=== PATIENT | female | born 1985 | race Two or more races ===

== ENCOUNTER 2021-06-09 19:53 | Emergency (ER) | payer MEDICAID ==
[~2021-06-09] VITALS: Ht 170.2 cm; Wt 65.8 kg
[2021-06-09 19:55] VITALS: BP 128/76
== END 2021-06-10 06:46 | disposition left against medical advice (07) ==
LOC: ER 19:54
DX: M54.5 Low back pain (principal); R50.9 Fever, unspecified; R30.9 Painful micturition, unspecified; Z53.21 Procedure and treatment not carried out due to patient leaving prior to being seen by health care provider

== ENCOUNTER 2021-07-30 21:11 | Emergency (ER) | payer SELFPAY ==
[~2021-07-30] VITALS: Ht 170.2 cm; Wt 68.0 kg
[2021-07-31] MEDS ORDERED: TETANUS-DIPTH-ACEL PERTUSSIS 0.5ML SYR Tdap IM ONE (00:15)
[2021-07-31] MEDS ORDERED: BACITRACIN TOP OINT 1 UD PKG TOP ONE (00:15)
[2021-07-31] MEDS ORDERED: LIDOCAINE 1% HCL (LOCAL ANESTH.) INJ 20ML MDV IJ ONE (00:15)
[2021-07-31 00:33] VITALS: BP 139/101
== END 2021-07-31 00:40 | disposition home or self-care (01) ==
LOC: ER 21:12
DX: S61.412A Laceration without foreign body of left hand, initial encounter (principal); W26.0XXA Contact with knife, initial encounter; Y93.89 Activity, other specified; Y92.89 Other specified places as the place of occurrence of the external cause; Y99.8 Other external cause status
CPT/HCPCS: 12001; 90471; 90715; 99283; J2001

== ENCOUNTER 2022-05-11 12:52 | Emergency (ER) | payer MEDICAID ==
[~2022-05-11] VITALS: Ht 180.3 cm; Wt 80.4 kg
[2022-05-11 14:55] VITALS: BP 145/99
== END 2022-05-11 15:39 | disposition home or self-care (01) ==
LOC: ER 12:52
DX: S80.02XA Contusion of left knee, initial encounter (principal); M62.831 Muscle spasm of calf; X58.XXXA Exposure to other specified factors, initial encounter; Y93.89 Activity, other specified; Y92.89 Other specified places as the place of occurrence of the external cause; Y99.8 Other external cause status
CPT/HCPCS: 93971

== ENCOUNTER 2022-12-05 12:38 | Emergency (ER) | payer MEDICAID ==
[~2022-12-05] VITALS: Ht 170.2 cm; Wt 73.0 kg
[2022-12-05] MEDS ORDERED: ASPirin 81 mg TAB PO ONE (12:45)
[2022-12-05] MEDS ORDERED: SODIUM CHLORIDE 0.9% 1,000 ML IV ONE (13:00)
[2022-12-05 13:01] LABS: Basophils # (auto) 0 10 ^3/uL (0-0.2); Eosinophils # (auto) 0.1 10 ^3/uL (0-0.8); Lymphocytes # (auto) 1.1 10 ^3/uL (0.4-5.4); Mean Corpuscular Hemoglobin 29.3 pg (28.0-32.0); Monocytes # (auto) 0.4 10 ^3/uL (0-1.3); Nucleated Red Blood Cells % 0.1 %; Red Cell Distribution Width 14.1 % (11.8-14.3); White Blood Cell 6.2 10^3/uL (4.4-10.8)
[2022-12-05 13:02] LABS: Basophils % (auto) 0.6 % (0.0-2.0); Eosinophils % (auto) 1.3 % (0.0-7.0); Hematocrit 39.9 % (36.0-46.0); Hemoglobin 13.7 g/dL (12.2-16.2); Lymphocytes % (auto) 18.4 % (10.0-50.0); Mean Corpuscular Hgb Conc. 34.3 g/dL (32.0-36.0); Mean Corpuscular Volume 85.3 fL (80.0-100.0); Neutrophils # (auto) 4.5 10 ^3/uL (1.6-8.6); Neutrophils % (auto) 72.7 % (37.0-80.0); Red Blood Cells 4.68 10^6/uL (4.0-5.20)
[2022-12-05 13:21] LABS: Albumin 2.2 g/dL (3.4-5.0); BUN/Creatinine Ratio 19.4; Potassium 3.7 mmol/L (3.5-5.1)
[2022-12-05 13:23] LABS: Bilirubin, Total 0.4 mg/dL (0.2-1.0); Total Protein 6.6 g/dL (6.4-8.2)
[2022-12-05] MEDS ORDERED: AZIT1POW PO (14:31)
[2022-12-05 15:16] VITALS: BP 109/68
== END 2022-12-05 15:18 | disposition home or self-care (01) ==
LOC: ER 12:38
DX: R07.89 Other chest pain (principal); J20.9 Acute bronchitis, unspecified; Z90.89 Acquired absence of other organs; Z79.2 Long term (current) use of antibiotics
CPT/HCPCS: 36415; 71045; 80053; 84484; 85025; 93005; 96360; 99285; J7030

== ENCOUNTER 2024-02-19 02:56 | Emergency (ER) | payer MEDICAID ==
[~2024-02-19] VITALS: Ht 170.2 cm; Wt 76.9 kg
[~2024-02-19 02:56] MED LIST: AZIT1POW PO
[2024-02-19 03:31] VITALS: BP 168/108; PULSE 106; RESP 16; O2SAT 99
== END 2024-02-19 04:35 | disposition left against medical advice (07) ==
LOC: ER 02:56
DX: H57.11 Ocular pain, right eye (principal); Z53.21 Procedure and treatment not carried out due to patient leaving prior to being seen by health care provider

== ENCOUNTER 2024-09-28 09:51 | Emergency (ER) | payer MEDICAID ==
[~2024-09-28] VITALS: Ht 170.2 cm; Wt 73.1 kg
[2024-09-28 10:18] VITALS: BP 138/99; PULSE 107; RESP 18; O2SAT 100
[2024-09-28] MEDS: KETOROLAC TROMETH 30 MG/ML 1ML VIAL IM ONE (10:35)
[2024-09-28] MEDS: HYDROcodone-ACET 5/325MG TAB PO ONE (10:35)
[2024-09-28] MEDS ORDERED: IBUP1TAB5 PO (10:59)
[2024-09-28] MEDS ORDERED: LIDO5PAD12 EX (10:59)
--- NOTE | 2024-09-28 11:00 | ED.PDOC ---
Back pain HPI HPI Comments 39-year-old female with no pertinent past medical history, presents to ED for back pain x5 days, after lifting heavy boxes at work. Patient reports that she may have twisted her back. She states that the pain is localized to her right lower back and does not radiate. Patient denies any numbness, tingling, fever, chills, nausea, vomiting, incontinence, dysuria, hematuria, urinary frequency. She states that she has not taken any medication for pain. The pain is currently rated as 10/10 severity. No alleviating or aggravating factors. Chief Complaint: Back Pain Time Seen by MD: 10:09 Primary Care Provider: ? 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 Family History Family History: Family hx of Cancer Social History Smoker: Non-Smoker Alcohol: Denies ETOH Use Drugs: Denies Drug Use Lives In: Home Constitutional: denies: chills, diaphoresis, fatigue, fever, malaise, sweats, weakness, others EENTM: denies: blurred vision, double vision, ear bleeding, ear discharge, ear drainage, ear pain, ear ringing, eye pain, eye redness, hearing loss, mouth pain, mouth swelling, nasal discharge, nose bleeding, nose congestion, nose pain, photophobia, tearing, throat pain, throat swelling, voice changes, others Respiratory: denies: cough, hemoptysis, orthopnea, SOB at rest, shortness of breath, SOB with excertion, stridor, wheezing, others Cardiovascular: denies: chest pain, dizzy spells, diaphoresis, Dyspnea on exertion, edema, irregular heart beat, left arm pain, lightheadedness, palpitations, PND, syncope, others Gastrointestinal: denies: abdomen distended, abdominal pain, blood streaked bowels, constipated, diarrhea, dysphagia, difficulty swallowing, hematemesis, melena, nausea, poor appetite, poor fluid intake, rectal bleeding, rectal pain, vomiting, others Genitourinary: denies: abnormal vagina bleeding, burning, dyspareunia, dysuria, flank pain, frequency, hematuria, incontinence, pain, , vagina discharge, urgency, others Neurological: denies: dizziness, fainting, headache, left sided numbness, left sided weakness, numbness, paresthesia, pre-existing deficit, right sided numbness, right sided weakness, seizure, speech problems, tingling, tremors, weakness, others Musculoskeletal: reports: back pain; denies: gout, joint pain, joint swelling, muscle pain, muscle stiffness, neck pain, others Integumetry: denies: bruises, change in color, change in hair/nails, dryness, laceration, lesions, lumps, rash, wounds, others Allergic/Immunocompromised: denies: Difficulty Healing, Frequent Infections, Hives, Itching, others Hematologic/Lymphatic: denies: anemia, blood clots, easy bleeding, easy bruising, swollen glands, others Endocrine: denies: excessive hunger, excessive sweating, excessive thirst, excessive urination, flushing, intolerance to cold, intolerance to heat, unexplained weight gain, unexplained weight loss, others Psychiatric: denies: anxiety, bipolar disorder, depression, hopeless, panic disorder, schizophrenia, sleepless, suicidal, others All Other Systems: Reviewed and Negative Physical Exam General Appearance: No Apparent Distress, Normal HEENT: Normal ENT Inspection, Pharynx Normal, TMs Normal Neck: Full Range of Motion, Non-Tender, Normal, Normal Inspection Respiratory: Chest Non-Tender, Lungs Clear, No Accessory Muscle Use, No Respiratory Distress, Normal Breath Sounds Cardiovascular: No Edema, No JVD, No Murmur, No Gallop, Normal Peripheral Pulses, Regular Rate/Rhythm Breast Exam: Deferred Gastrointestinal: No Organomegaly, Non Tender, No Pulsatile Mass, Normal Bowel Sounds, Soft Genitalia: Deferred Pelvic: Deferred Rectal: Deferred Extremities: No calf tenderness, Normal capillary refill, Normal inspection, Normal range of motion, Non-tender, No pedal edema Musculoskeletal : Location: Right Extremity Location: Back (No spinal midline tenderness. No spinal step- offs. No ecchymosis noted. No tenderness to palpation to the right lower back.) Apperance: Normal Neurologic: Alert, tafe lecturer II-XII nml as Tested, No Motor Deficits, Normal Affect, Normal Mood, No Sensory Deficits Cerebellar Function: Normal Reflexes: Normal Skin: Dry, Normal Color, Warm Lymphatic: No Adenopathy Was a procedure done? Was a procedure done?: No Back Pain Differential Dx Differential Diagnosis: Fracture, Musculoskeletal Pain, Strain, Other (Fracture) X-Ray, Labs, Meds, VS Vital Signs Date Time Temp Pulse Resp B/P (MAP) Pulse Ox O2 Delivery O2 Flow Rate FiO2 09/28/24 10:18 98.1 107 18 138/99 (112) 100 Current Medications Medications (Trade) Dose Ordered Sig/[place] Route Start Time Stop Time Status Last Admin Ketorolac Tromethamine (Toradol Injection) 30 mg ONCE ONCE IM 09/28/24 10:15 09/28/24 10:16 DC 09/28/24 10:35 Acetaminophen/ Hydrocodone Bitart ([place]olverine 5/325MG Tab) 1 tab ONCE ONCE PO 09/28/24 10:15 09/28/24 10:16 DC 09/28/24 10:35 X-Ray, Labs, Meds, VS Comment MDM: Patient with history as above presented with back pain. History obtained from patient. Patient was nontoxic, stable, afebrile, ambulatory, no acute distress. Exam as above. Reviewed external records. All findings were discussed with the patient. Differential diagnosis considered. Overall presentation is consistent with lumbar strain. Low suspicion for fracture, dislocation, neurovascular injury, cauda equina syndrome, spinal epidural abscess. Patient was treated with Toradol and Wolverine with improvement in symptoms. Patient was reevaluated and vital signs were reviewed. Consideration was given for admission, but the patient was stable for outpatient management. Prescribed ibuprofen and lidocaine patches for outpatient treatment. Disposition: Discussed the need to follow up diagnostics, including incidental findings. Discharged the patient with instructions to obtain outpatient follow up in 1-2 days of today's symptoms and findings, with strict return precautions if patient develops new or worsening symptoms. This medical document was created using the [employer] system. Although this document has been carefully reviewed, there may still be some phonetic and typographical errors, which are due to imperfections of the software program, and do not reflect any compromise in the patient's medical care. Time of 1ST Reevaluation: 10:58 Reevaluation 1ST: Improved Patient Education/Counseling: Diagnosis, Treatment, Prognosis, Need For Follow Up Family Education/Counseling: No Family Present Departure 1 Departure Time of Disposition: 10:58 Impression: Primary Impression: Lumbar strain Qualified Codes: S39.012A - Strain of muscle, fascia and tendon of lower back, initial encounter Disposition: HOME / SELF CARE / HOMELESS Condition: Fair e-Prescriptions Lidocaine (Lidocaine Patch 5%) 5 % Pad 5 % EX DAILY, #10 PAD Prov: RAMONA HINOJOSA 09/28/24 Ibuprofen Micronized (Ibuprofen) 600 Mg Tab 600 MG PO Q8HPRN PRN, #20 TAB Prov: RAMONA HINOJOSA 09/28/24 Critical Care Note Critical Care Time?: No Stability Stability form required: No Heart Score Heart Score: Heart Score Response (Comments) Value History N/A 0 EKG N/A 0 Age N/A 0 Risk Factors N/A 0 Troponin N/A 0 Total 0 RAMONA HINOJOSA Sep 28, 2024 11:00
== END 2024-09-28 11:00 | disposition home or self-care (01) ==
LOC: ER 09:51
DX: S39.012A Strain of muscle, fascia and tendon of lower back, initial encounter (principal); Z90.89 Acquired absence of other organs; X50.0XXA Overexertion from strenuous movement or load, initial encounter; Y93.89 Activity, other specified; Y92.89 Other specified places as the place of occurrence of the external cause; Y99.8 Other external cause status
CPT/HCPCS: 96372; 99283; J1885

== ENCOUNTER 2024-12-13 05:41 | Emergency (ER) | payer MEDICAID ==
[~2024-12-13] VITALS: Ht 170.2 cm; Wt 77.2 kg
[~2024-12-13 05:41] MED LIST changes: +IBUP1TAB5 PO; +LIDO5PAD12 EX
[2024-12-13 05:44] VITALS: BP 125/91
[2024-12-13 06:34] VITALS: PULSE 112; RESP 19; O2SAT 100
[2024-12-13] MEDS: HYDROcodone-ACET 5/325MG TAB PO ONE (07:02)
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
== END 2024-12-13 08:38 | disposition home or self-care (01) ==
LOC: ER 05:41
DX: S43.401A Unspecified sprain of right shoulder joint, initial encounter (principal); Z90.89 Acquired absence of other organs; Z79.899 Other long term (current) drug therapy; V29.99XA Rider (driver) (passenger) of other motorcycle injured in unspecified traffic accident, initial encounter; Y93.89 Activity, other specified; Y92.410 Unspecified street and highway as the place of occurrence of the external cause; Y99.8 Other external cause status
CPT/HCPCS: 73000; 73030; 99284; J7030